=== PATIENT | male | born 1960 | race Caucasian/White ===

== ENCOUNTER 2016-11-05 11:28 | Day surgery (SDC) | payer OTHER, BC ==
--- NOTE | 2016-10-03 11:06 | DIAGNOSTIC IMAGING REPORT ---
CHEST 2 VIEWS ROUTINE CLINICAL HISTORY: Preoperative chest COMPARISON STUDY: 03/06/2016 FINDINGS: The cardiac and mediastinal contours are normal. There is no evidence of focal pulmonary consolidation. There is no evidence of failure. No pleural effusions are visualized.[ IMPRESSION: No active disease in the chest. Electronically signed by: Brad Mckeon M.D. 10/03/2016 11:04 AM
[2016-10-03 11:23] LABS: BASO % 0.6 %; BASO ABS # 0.04 K/uL (0-0.2); COMPLETE YES; EOS % 3.1 %; HEMATOCRIT 44.9 % (42-52); IG% 0.1 %; LYMPH % 30.4 %; LYMPH ABS # 2.08 K/uL (1.2-3.4); MEAN CELL VOLUME 85.4 fL (80-100); MEAN CORPUSCULAR HEMOGLOBIN 29.5 pg (25-34); MEAN CORPUSCULAR HGB CONC 34.5 g/dl (32-36); MEAN PLATELET VOLUME 10.4 fL (7.4-10.4); MONO % 8.9 %; NEUT % 56.9 %; PLATELET COUNT 262 K/uL (130-400); RED BLOOD COUNT 5.26 M/uL (4.7-6.1); WHITE BLOOD COUNT 6.84 K/uL (4.8-10.8)
[2016-10-03 11:26] LABS: URINE APPEARANCE CLEAR (CLEAR); URINE BILIRUBIN NEG (NEG); URINE COLOR YELLOW; URINE NITRITE NEG (NEG); URINE PH 6.5 (4.5-7.5); URINE SPECIFIC GRAVITY 1.018 (1.000-1.030); UROBILINOGEN NEG (NEG)
[2016-10-03 11:32] LABS: MANUAL MICROSCOPIC REQUIRED? NO; REVIEW REQ? NO
[2016-10-03 11:55] LABS: BLOOD UREA NITROGEN 18 mg/dl (7-18); BUN/CREATININE RATIO 19.6 (10-20); CALCIUM 8.7 mg/dl (8.5-10.1); CARBON DIOXIDE 30 mmol/L (21-32); CHLORIDE 106 mmol/L (98-107); CREATININE 0.91 mg/dl (0.60-1.40); GLUCOSE 107 mg/dl (70-99); POTASSIUM 4.1 mmol/L (3.5-5.1); SODIUM 141 mmol/L (136-145)
[2016-10-23 14:28] VITALS: BMI 36.0
[~2016-11-05] VITALS: Ht 180.3 cm; Wt 118.2 kg
[~2016-11-05 11:28] MED LIST: CEFAZOLIN 2000 MG/60 ML D5W IV SCH; FLUT0.15; LACTATED RINGER'S 1000ML 1,000 ML IV SCH
[2016-11-05 12:33] VITALS: BP 119/81; PULSE 77; TEMP 36.8; O2SAT 97; Ht 180.3 cm; Wt 118.2 kg
[2016-11-05 12:43] LABS: PARTIAL THROMBOPLASTIN RATIO 1.1; PROTHROMBIN TIME (PATIENT) 10.7 SECONDS (9.0-12.0)
[2016-11-05] MEDS ORDERED: FENTANYL CITRATE INJ 50 MCG/1 ML 2 ML VIAL ONE ×2 (13:34)
[2016-11-05] MEDS ORDERED: PROPOFOL IV EMULSION 10 MG/ML 20 ML VIAL IV ONE (13:34)
[2016-11-05] MEDS ORDERED: MIDAZOLAM HCL 1 MG/ML 2ML VIAL ONE (13:35)
[2016-11-05] MEDS ORDERED: OXYC-57 PO (14:18)
--- NOTE | 2016-11-05 14:20 | Discharge Instructions ---
Discharge Instructions Admission Reason for Admission: Herniated Nucleus Pulposus Discharge Discharge Diagnosis / Problem: Lumbar Herniated Disc Discharge Goals Goal(s): Decrease discomfort, Improve function, Increase independence Activity Recommendations Activity Limitations: as noted below Lifting Limitations: no more than 5 pounds Exercise/Sports Limitations: until after follow-up appointment May Resume Sexual Activity: after follow-up appointment Shower/Bathe: may shower/bathe in 3 days . Instructions / Follow-Up Instructions / Follow-Up ACTIVITY RECOMMENDATIONS: SELF CARE INSTRUCTIONS AFTER A LAMINECTOMY 1. No prolonged sitting (less than 30 minutes for the first 3 weeks after surgery). 2. No bending, lifting more than 5 pounds, or twisting (roll like a log when turning in bed). 3. You may shower 3 days after surgery if no drainage from wound. Thoroughly dry wound. Do not soak in the tub. 4. Please walk as much as you can for exercise. Gradually increase the distance that you walk as your endurance increases. 5. You may drive in 7-10 days if you are comfortable and no longer requiring pain medications. SPECIAL CARE INSTRUCTIONS: VERY IMPORTANT TO READ AND REVIEW A. Your surgical incision has been closed with a cosmetic suture under the skin that will dissolve in about 6 weeks. In 14 days, you can use a pair of clean scissors and cut the suture that is left outside of the skin at the ends of your incision. B. Complications are uncommon, but please contact us if you have any signs or symptoms of: 1. wound infection (fever higher than 102.5 degrees F, redness, separation of wound, drainage, or increasing pain from the incision) 2. blood clots in legs (pain, swelling, redness and warmth in legs) 3. urinary tract infection (fever higher than 102.5 degrees, burning upon urination or increased frequency of urination) 4. nerve problems (inability to walk on your toes or heels, numbness, loss of bowel or bladder control) 5. any other symptoms that concern you. C. Please call the office at if you have any concerns or questions about your operation or recovery. MANAGING PAIN AFTER SPINAL SURGERY 1. Narcotic medication is intended for short-term use and will be provided for surgical pain. Surgical pain usually lasts for a period of 4-6 weeks. Narcotic medication includes Percocet, Vicodin, Darvocet, Tylenol #3 or Lortab. 2. Longer-term pain is more appropriately treated with non-narcotic medication such as Tylenol ES. 3. Muscle spasm is not appropriately treated with narcotics. Muscle relaxers such as Soma, Flexeril or Skelaxin can be used along with Tylenol ES. 4. Remember that we all live with some "aches and pains". This is not unusual or uncommon after an injury or as we get older. 5. We will provide appropriate medication within the normal guidelines of their prescribed use. We will also be very cautious and aware of potential abuse and extended duration of patients' medication needs. 6. Please allow 2-3 days to process refills. Prescriptions will not be mailed but must be picked up at the office. FOLLOW UP VISIT: Keep your scheduled follow-up appointment. Any questions, please call the office at . Current Hospital Diet Patient's current hospital diet: Discharge Diet Recommended Diet: Regular Diet Pending Studies Studies pending at discharge: no Medical Emergencies . Who to Call and When: Medical Emergencies: If at any time you feel your situation is an emergency, please call 911 immediately. . Non-Emergent Contact Non-Emergency issues call your: Surgeon Call Non-Emergent contact if: temperature is above 101, your pain is not controlled, your pain is worsening, your pain is unusual for you, your pain is concerning you, wound has increased drainage, wound has increased redness, wound has increased pain, you have any medication questions . "Provider Documentation" section prepared by Manfred Yuen. VTE Core Measure Inpt VTE Proph given/why not?: Saurabh Jack
--- NOTE | 2016-11-05 14:30 | History and Physical ---
History & Physical Date Nov 05, 2016. Chief Complaint LBP and L leg pain History of Present Illness The patient is a 56 year old male with complaints of above who failed non op treatment with MRI demonstrating large L L2-3 HNP. Difficulty working due to symptoms. index injury 03/28, reaggravated 08/28. work related injury. works at [employer] ex. no right leg pain. no incontinence Past Medical/Surgical History Medical Problems: (1) Back strain 2 obesity 3 colonoscopy Additional History Hepatic Disease: No Endocrine Disorder: No Kidney Disease: No Hypertension: No Heart Disease: No Bleeding Tendencies: No Infectious Diseases: No Allergies Coded Allergies: No Known Allergies (Unverified , 11/05/16) Home Medications Scheduled PRN Fluticasone Propionate (Nasal) (Flonase Allergy Relief), 1 SPRAY NA DAILY PRN for PRN Oxycodone/Acetaminophen 5MG/325MG (Percocet 5MG/325MG), 1-2 TABLETS PO Q4H PRN for Pain Physical Examination Skin: warm/dry Eyes: normal inspection ENT: normal ENT inspection Head: normocephalic, atraumatic Neck: supple, trachea midline Respiratory/Chest: lungs clear, no respiratory distress Cardiovascular: regular rate, rhythm Back: normal inspection Extremities: normal inspection, normal range of motion Neurologic/Psych: no motor/sensory deficits, alert, normal reflexes, oriented x 3 Diagnosis L L2-3 HNP Plan of Treatment Left L2-3 miocrodiscecomty
[2016-11-05] MEDS ORDERED: ONDANSETRON INJ 2 MG/ML 2 ML VIAL IV PRN ×2 (14:45→15:45)
[2016-11-05] MEDS ORDERED: ATROPINE SULFATE 0.1 MG/ML 5ML SYR IV PRN (14:45)
[2016-11-05] MEDS ORDERED: EpHEDrine SULFATE INJ 50 MG/ML AMP IV PRN (14:45)
[2016-11-05] MEDS ORDERED: FENTANYL CITRATE INJ 50 MCG/1 ML 2 ML VIAL IV PRN (14:45)
[2016-11-05] MEDS ORDERED: GLYCOPYRROLATE INJ 0.2 MG/ML VIAL ONE (15:06)
[2016-11-05] MEDS ORDERED: ONDANSETRON INJ 2 MG/ML 2 ML VIAL ONE (15:06)
[2016-11-05] MEDS ORDERED: DEXAMETHASONE SOD INJ 4 MG/ML VIAL ONE (15:06)
[2016-11-05] MEDS ORDERED: NEOSTIGMINE METHYLSULFATE 1 MG/ML 10ML VIAL ONE (15:06)
[2016-11-05] MEDS ORDERED: LIDOCAINE HCL 2% 2 ML VIAL (20MG/ML) ONE (15:06)
[2016-11-05] MEDS ORDERED: ROCURONIUM BROMIDE 10 MG/ML 5 ML VIAL ONE (15:06)
[2016-11-05] MEDS ORDERED: BUPIVACAINE/EPINEPHRINE 0.5% MPF 1:200,000 30 ML VIAL INJ ONE (15:16)
[2016-11-05] MEDS ORDERED: THROMBIN 5000 UNITS KIT TOP ONE (15:19)
[2016-11-05] MEDS ORDERED: SODIUM CHLORIDE 0.9% 1000ML 1,000 ML IV SCH (15:35)
--- NOTE | 2016-11-05 15:35 | [facility] Post Operative Brief Note ---
Immediate Operative Summary Operative Date Nov 05, 2016. Pre-Operative Diagnosis Herniated Nucleus Pulposus Post-Operative Diagnosis Same as preop Procedure(s) Performed Left L2-L3 Microdiscectomy Surgeon Dr. Doherty Drier Helper Surgeon(s) Asa Yuen PA-C Estimated Blood Loss 20 ml Findings dict Specimens None per Surgeon
[2016-11-05] MEDS ORDERED: FLOSEAL HEMOSTATIC MATRIX 5ML TOP ONE (15:36)
[2016-11-05] MEDS ORDERED: BACITRACIN 50000 UNIT VIAL IR ONE (15:36)
--- NOTE | 2016-11-05 15:44 | DIAGNOSTIC IMAGING REPORT ---
INTRAOPERATIVE SPINE SINGLE VIEW CLINICAL HISTORY: LT L2-3 MICRODISCECTOMY COMPARISON STUDY: Conventional radiographic study dated March 14, 2016 FINDINGS: A single intraoperative fluoroscopic spot images provided for interpretation. 4 seconds of fluoroscopic time was utilized. There are posterior skin retractors present. There is a metallic probe projected over the L2-3 disc. IMPRESSION: Intraoperative localization as described above. Electronically signed by: Brad Mckeon M.D. 11/05/2016 3:42 PM Dictated Date/Time: 11/05/2016 3:41 PM
[2016-11-05] MEDS ORDERED: MoRPHine SULFATE 4 MG/ML 1 ML CARP\\VIAL IV PRN (15:45)
[2016-11-05] MEDS ORDERED: OXYCODONE/ACETAMINOPHEN 5-325 TAB PO PRN ×2 (15:45)
--- NOTE | 2016-11-05 15:50 | OPERATIVE REPORT ---
DATE OF OPERATION: 11/05/2016 PREOPERATIVE DIAGNOSES: Left L2-L3 herniated nucleus pulposus. POSTOPERATIVE DIAGNOSIS: Same. PROCEDURES: Left L2-L3 microdiscectomy. SURGEON: Dr. Doherty. MOTOR VEHICLE FIELD REPRESENTATIVE: Manfred Yuen PA-C. Please note he participated in all portions of the procedure and was critical for performance of procedure, participated in positioning, prepping, draping, retraction and wound closure. ANESTHESIA: General endotracheal anesthesia. COMPLICATIONS: None. ESTIMATED BLOOD LOSS: Minimal. DESCRIPTION OF PROCEDURE: After identification of patient and operative level, he was brought to the OR where he underwent induction of general anesthesia. He was then positioned prone on Rafael OR table. All bony prominences were well padded. Care was taken to avoid pressure on the periorbital area. Lumbosacral area was sterilely prepped and draped in usual fashion. Antibiotics were administered. Time-out was performed. Level was confirmed and skin incision was localized with lateral fluoroscopy and a spinal needle. Skin was infiltrated with Marcaine with epinephrine and skin incision was made of spinous process of L2 and L3, the left L2-L3 interlaminar window was exposed. A blacktop spreader retractor was placed and level was confirmed with fluoroscopy. I then did a laminotomy under the caudal edge of L2, removed medial 25% of the facet of L2-L3, identified the traversing nerve root, protected the nerve root with a nerve retractor. There was a broad-based disc protrusion with an annular tear noted. No free disc fragments were found consistent with absorption of some of the extruded fragment felt to be present on the MRI. I removed loose fragments behind the annulus through the preexisting annular tear. I made sure the nerve roots were free of compression and irrigated with bacitracin solution and reconfirmed level and applied FloSeal prior to layered closure. All sponge and needle counts were correct at the end of the case. I attest to the content of the Intraoperative Record and any orders documented therein. Any exceptio ns are noted below.
--- NOTE | 2016-11-05 16:26 | Anesthesiology Progress Note ---
Anesthesia Post Op Note Date & Time Nov 05, 2016 at 16:26 Vital Signs Pain Intensity: 5 Vital Signs Past 12 Hours Date Time Temp Pulse Resp B/P Pulse Ox O2 Delivery O2 Flow Rate FiO2 11/05/16 16:00 70 17 111/84 100 Mask 10 11/05/16 15:51 36.1 78 16 135/88 100 Mask 10 11/05/16 12:33 36.8 77 20 119/81 97 Room Air Notes Mental Status: alert / awake / arousable, participated in evaluation Pt Amnestic to Procedure: Yes Nausea / Vomiting: adequately controlled Pain: adequately controlled Airway Patency, RR, SpO2: stable & adequate BP & HR: stable & adequate Hydration State: stable & adequate Anesthetic Complications: no major complications apparent
[2016-11-05 17:40] VITALS: BP 140/89; PULSE 75; TEMP 36.7; O2SAT 95
== END 2016-11-05 17:44 | disposition home or self-care (01) ==
LOC: C.ACU 11:28
PROVIDERS: ATTEND Orthopaedic Surgery Orthopaedic Surgery of the Spine
DX: M51.16 Intervertebral disc disorders with radiculopathy, lumbar region (principal); E66.9 Obesity, unspecified

== ENCOUNTER 2017-10-28 11:03 | Observation (INO) | payer OTHER, BC ==
[~2017-10-28] VITALS: Ht 182.9 cm; Wt 122.9 kg
[~2017-10-28 11:03] MED LIST changes: -CEFAZOLIN 2000 MG/60 ML D5W IV SCH; -LACTATED RINGER'S 1000ML 1,000 ML IV SCH
[2017-10-28 12:02] LABS: PTT PATIENT 29.3 SECONDS (21.0-31.0)
[2017-10-28 12:06] LABS: BASO % 0.6 %; BASO ABS # 0.05 K/uL (0-0.2); EOS % 3.6 %; EOS ABS # 0.29 K/uL (0-0.5); HEMATOCRIT 45.5 % (42-52); HEMOGLOBIN 15.7 g/dL (14.0-18.0); IG# 0.02 K/uL (0.00-0.02); LYMPH % 28.2 %; LYMPH ABS # 2.25 K/uL (1.2-3.4); MEAN CELL VOLUME 84.9 fL (80-100); MEAN CORPUSCULAR HEMOGLOBIN 29.3 pg (25-34); MEAN CORPUSCULAR HGB CONC 34.5 g/dl (32-36); MEAN PLATELET VOLUME 10.1 fL (7.4-10.4); MONO % 9.6 %; MONO ABS # 0.77 K/uL (0.11-0.59); NEUT % 57.7 %; NEUT ABS # 4.61 K/uL (1.4-6.5); PLATELET COUNT 281 K/uL (130-400); RED CELL DISTRIBUTION WIDTH SD 46.5 fL (36.4-46.3); WHITE BLOOD COUNT 7.99 K/uL (4.8-10.8)
[2017-10-28 12:11] LABS: ALBUMIN 3.6 gm/dl (3.4-5.0); ALT/SGPT 33 U/L (12-78); AST/SGOT 20 U/L (15-37); BLOOD UREA NITROGEN 14 mg/dl (7-18); CARBON DIOXIDE 29 mmol/L (21-32); CREATININE 0.95 mg/dl (0.60-1.40); GLUCOSE 100 mg/dl (70-99); POTASSIUM 4.3 mmol/L (3.5-5.1); SODIUM 138 mmol/L (136-145)
[2017-10-28 12:20] LABS: ALKALINE PHOSPHATASE 68 U/L (45-117); TOTAL PROTEIN 7.2 gm/dl (6.4-8.2)
--- NOTE | 2017-10-28 12:22 | DIAGNOSTIC IMAGING REPORT ---
CT OF THE HEAD WITHOUT CONTRAST CLINICAL HISTORY: Syncope. Fall. COMPARISON STUDY: No previous studies for comparison. TECHNIQUE: Helical axial images of the head were obtained without IV contrast. Automated exposure control was utilized for the study. A dose lowering technique was utilized adhering to the principles of ALARA. FINDINGS: No acute intracranial hemorrhage, midline shift or mass effect is present. Brain volume is normal. Ventricular system is normal. Basilar cisterns are patent. There are no extra-axial collections. Iqbal-white differentiation is maintained. There are no findings to suggest acute dural sinus thrombosis or acute territorial infarct. No calvarial fracture is present. IMPRESSION: No acute intracranial findings. Electronically signed by: Jalen Kolb M.D. 10/28/2017 12:21 PM Dictated Date/Time: 10/28/2017 12:19 PM
--- NOTE | 2017-10-28 12:26 | DIAGNOSTIC IMAGING REPORT ---
CT OF THE CERVICAL SPINE WITHOUT CONTRAST CLINICAL HISTORY: Fall. COMPARISON STUDY: No previous studies for comparison. TECHNIQUE: Helical axial images of the cervical spine were obtained without IV contrast. Sagittal and coronal reconstructions were viewed. A dose lowering technique was utilized adhering to the principles of ALARA. FINDINGS: There is reversal of the normal cervical lordosis. No acute cervical spine fracture is identified. The craniocervical junction is intact. There is mild multilevel disc space narrowing with extensive anterior osteophytosis of the cervical spine. There is no prevertebral edema. IMPRESSION: 1. No acute cervical spine fracture or subluxation. 2. Mild multilevel disc space narrowing and extensive anterior osteophytosis of the cervical spine. Electronically signed by: Jalen Kolb M.D. 10/28/2017 12:24 PM Dictated Date/Time: 10/28/2017 12:21 PM
[2017-10-28] MEDS ORDERED: ACETAMINOPHEN 325 MG TAB PO PRN (14:00)
--- NOTE | 2017-10-28 15:03 | History and Physical ---
History & Physical Date & Time of Service: Oct 28, 2017 at 14:46 Chief Complaint: Syncope Primary Care Physician: No Doctor, Assigned History of Present Illness Source: patient This patient is a 57-year-old male with a history of seasonal allergies and IBS , who presents with multiple episodes of syncope today. He reports he pulled off the side of the road yesterday around 1800 to de-ice his windshield wipers when he slipped on ice backwards and hit his head. He saw stars at that time, but does not think he passed out. He laid on the side of the road for a few minutes and then was able to get up and drive himself home. He had a headache last night and took a couple of Advil. He slept through his alarm which is unusual for him this morning. As he was walking out the door to go to work he got very lightheaded but did not pass out. He then proceeded to have another episode of near syncope at work as he was walking into the building. He then was recommended by his job to go get checked out at the urgent care. As he was walking out to his car, he suddenly had loss of consciousness and dropped to the ground in the parking lot. He denies any preceding lightheadedness, chest pain, heart palpitations, nausea. His headache today is actually better than yesterday at 1 out of 10 and is located in the posterior occiput. The syncope today was unwitnessed, but he thinks it could not have been a loss of consciousness for more than a few minutes. There was no evidence of seizure activity. He will be admitted overnight for observation on telemetry for multiple episodes of near syncope and syncope. 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[employer]) Allergies Coded Allergies: No Known Allergies (Unverified , 10/28/17) Home Medications No Active Prescriptions or Reported Meds Review of Systems Constitutional: + fatigue, No fever Eyes: No problem reported ENT: No problem reported Respiratory: No problem reported Cardiovascular: No problem reported Abdomen: No problem reported Musculoskeletal: No problem reported Genitourinary - Male: No problem reported Neurologic: + problem reported (mild headache), No numbness/tingling Psychiatric: No problem reported Endocrine: No problem reported Hematologic / Lymphatic: No problem reported Integumentary: No problem reported Allergic / Immunologic: No problem reported Physical Exam Vital Signs Date Time Temp Pulse Resp B/P (MAP) Pulse Ox O2 Delivery O2 Flow Rate FiO2 10/28/17 13:48 73 18 114/62 97 Room Air 10/28/17 12:06 69 18 136/87 98 Room Air 10/28/17 12:06 71 20 120/74 98 Room Air 69 136/87 87 131/90 10/28/17 11:35 79 10/28/17 11:21 36.4 75 20 122/82 95 Room Air 10/28/17 11:21 Room Air General Appearance: WD/WN, no apparent distress, + obese Head: normocephalic, atraumatic (with positive tenderness to palpation in the posterior occiput, no hematoma or laceration identified) Eyes: normal inspection, PERRL, EOMI, sclerae normal ENT: hearing grossly normal, pharynx normal Neck: supple, no adenopathy, thyroid normal, no carotid bruits, trachea midline Respiratory/Chest: lungs clear, normal breath sounds, no respiratory distress, no accessory muscle use Cardiovascular: regular rate, rhythm, no edema, no gallop, no murmur, normal peripheral pulses Abdomen/GI: normal bowel sounds, non tender, soft, no organomegaly, no pulsatile mass Back: normal inspection Extremities/Musculoskelatal: no calf tenderness, normal capillary refill, no pedal edema, normal range of motion Neurologic/Psych: rn bone marrow transplant II-XII nml as tested, no motor/sensory deficits, alert, normal mood/affect, oriented x 3 Skin: normal color, warm/dry, no rash, + pertinent finding (a small superficial abrasion nonbleeding on the left patella, and a few small superficial scrapes of the left anterior tibia) Lymphatic: no adenopathy Diagnostics Laboratory Results Results Past 24 Hours Test 10/28/17 11:36 10/28/17 11:55 10/28/17 12:00 Range/Units White Blood Count 7.99 4.8-10.8 K/uL Red Blood Count 5.36 4.7-6.1 M/uL Hemoglobin 15.7 14.0-18.0 g/dL Hematocrit 45.5 42-52 % Mean Corpuscular Volume 84.9 80-100 fL Mean Corpuscular Hemoglobin 29.3 25-34 pg Mean Corpuscular Hemoglobin Concent 34.5 32-36 g/dl Platelet Count 281 130-400 K/uL Mean Platelet Volume 10.1 7.4-10.4 fL Neutrophils (%) (Auto) 57.7 % Lymphocytes (%) (Auto) 28.2 % Monocytes (%) (Auto) 9.6 % Eosinophils (%) (Auto) 3.6 % Basophils (%) (Auto) 0.6 % Neutrophils # (Auto) 4.61 1.4-6.5 K/uL Lymphocytes # (Auto) 2.25 1.2-3.4 K/uL Monocytes # (Auto) 0.77 0.11-0.59 K/uL Eosinophils # (Auto) 0.29 0-0.5 K/uL Basophils # (Auto) 0.05 0-0.2 K/uL RDW Standard Deviation 46.5 36.4-46.3 fL RDW Coefficient of Variation 15.0 11.5-14.5 % Immature Granulocyte % (Auto) 0.3 % Immature Granulocyte # (Auto) 0.02 0.00-0.02 K/uL Prothrombin Time 10.9 9.0-12.0 SECONDS Prothromb Time International Ratio 1.0 0.9-1.1 Activated Partial Thromboplast Time 29.3 21.0-31.0 SECONDS Partial Thromboplastin Ratio 1.1 Sodium Level 138 136-145 mmol/L Potassium Level 4.3 3.5-5.1 mmol/L Chloride Level 105 98-107 mmol/L Carbon Dioxide Level 29 21-32 mmol/L Anion Gap 4.0 3-11 mmol/L Blood Urea Nitrogen 14 7-18 mg/dl Creatinine 0.95 0.60-1.40 mg/dl Est Creatinine Clear Calc Drug Dose 118.0 ml/min Estimated GFR () 102.6 Estimated GFR (Non- 88.5 BUN/Creatinine Ratio 14.9 10-20 Random Glucose 100 70-99 mg/dl Calcium Level 9.0 8.5-10.1 mg/dl Magnesium Level 2.1 1.8-2.4 mg/dl Total Bilirubin 0.7 0.2-1 mg/dl Direct Bilirubin 0.2 0-0.2 mg/dl Aspartate Amino Transf (AST/SGOT) 20 15-37 U/L Alanine Aminotransferase (ALT/SGPT) 33 12-78 U/L Alkaline Phosphatase 68 45-117 U/L Troponin I < 0.015 0-0.045 ng/ml Total Protein 7.2 6.4-8.2 gm/dl Albumin 3.6 3.4-5.0 gm/dl Thyroid Stimulating Hormone (TSH) 2.290 0.300-4.500 uIu/ml Free Thyroxine 1.32 0.80-1.60 ng/dl Ethyl Alcohol mg/dL < 3.0 0-3 mg/dl Urine Color YELLOW Urine Appearance CLEAR CLEAR Urine pH 6.5 4.5-7.5 Urine Specific [place] 1.012 1.000-1.030 Urine Protein NEG NEG Urine Glucose (UA) NEG NEG Urine Ketones NEG NEG Urine Occult Blood TRACE NEG Urine Nitrite NEG NEG Urine Bilirubin NEG NEG Urine Urobilinogen NEG NEG Urine Leukocyte Esterase NEG NEG Urine WBC (Auto) 0 0-5 /hpf Urine RBC (Auto) 0-4 0-4 /hpf Urine Hyaline Casts (Auto) 0 0-5 /lpf Urine Epithelial Cells (Auto) 0-5 0-5 /lpf Urine Bacteria (Auto) NEG NEG Urine Opiates Screen NEG NEG Urine Methadone, Qualitative NEG NEG Urine Barbiturates NEG NEG Urine Phencyclidine (PCP) Level NEG NEG Ur Amphetamine/Methamphetamine NEG NEG MDMA (Ecstasy) Screen NEG NEG Urine Benzodiazepines Screen NEG NEG Urine Cocaine Metabolite NEG NEG Urine Marijuana (THC) NEG NEG Diagnostic Radiology CT of the head and CT of the neck without any acute changes EKG Normal sinus rhythm, rate 71, nonspecific T-wave inversions in the inferior leads Impression Assessment and Plan This patient is a 57-year-old male with a history of seasonal allergies and IBS , who presents with multiple episodes of syncope today. He reports he pulled off the side of the road yesterday around 1800 to de-ice his windshield wipers when he slipped on ice backwards and hit his head. He saw stars at that time, but does not think he passed out. He laid on the side of the road for a few minutes and then was able to get up and drive himself home. He had a headache last night and took a couple of Advil. He slept through his alarm which is unusual for him this morning. As he was walking out the door to go to work he got very lightheaded but did not pass out. He then proceeded to have another episode of near syncope at work as he was walking into the building. He then was recommended by his job to go get checked out at the urgent care. As he was walking out to his car, he suddenly had loss of consciousness and dropped to the ground in the parking lot. He denies any preceding lightheadedness, chest pain, heart palpitations, nausea. His headache today is actually better than yesterday at 1 out of 10 and is located in the posterior occiput. The syncope today was unwitnessed, but he thinks it could not have been a loss of consciousness for more than a few minutes. There was no evidence of seizure activity. He will be admitted overnight for observation on telemetry for multiple episodes of near syncope and syncope. Recurrent syncope/concussion/headache-syncope is most likely related to recent head injury. He has no history of any cardiac issues in the past. His ECG does have very slight abnormality of the T waves in the inferior leads. -Admit to telemetry for observation for cardiac dysrhythmia -Consult neurology for further evaluation and recommendations -Check 1 more troponin in 6 hours to rule out cardiac ischemia, follow ECG in the morning -Check echocardiogram for structural heart disease -Would recommend post concussive precautions such as complete mental and physical rest, no driving until cleared by primary care doctor after discharge -Tylenol as needed for headache -Neuro checks daily IBS-stable -Supportive care as needed Seasonal allergies-stable, no current issues -Takes Zyrtec and Flonase as needed usually in the spring time Prophylaxis-SCDs Disposition-likely to home, will get PT/OT evaluations Full code Level of Care Telemetry Resuscitation Status FULL RESUSCITATION VTE Prophylaxis VTE Risk Assessment Done? Y/N: Yes Risk Level: Low Given or contraindicated: SCD's
--- NOTE | 2017-10-28 15:21 | EMERGENCY ROOM VISIT NOTE ---
History Report prepared by Ce: Clarke Zepeda Under the Supervision of: Dr. Benito Josue M.D. First contact with patient: 11:14 Stated Complaint: SYNCOPE History of Present Illness The patient is a 57 year old male who presents to the Emergency Room brought in by EMS with complaints of episodic syncope since 6 PM YESTERDAY. He reports that he pulled off exit [address] last night to adjust his windshield wipers when he slipped on ice and landed on his head. He notes that he probably had LOC. He states that he got back into his vehicle and drove back to his place of work. He states his neck and head are in pain. He describes the pain as dull and achy. He currently rates his pain a 3/10 in severity[address] On his way to work this morning, the patient states that he walked outside and grabbed the railing of stairs and suddenly fainted. He is unsure if he hit his head again and of how long he was passed out. He denies being incontinent of urine or tongue bites. He notes that he was dazed. He states that he drove to work and when he was walking into work, he collapsed onto his knees, though he did not have LOC. He asked for someone to take him to the hospital, but was denied. He states that he was on his way to his vehicle to drive himself to the hospital when he passed out and hit is head again. Overall, the patient has had three syncopal episodes in the last 17 hours and one near-syncopal episode. He states that he has no warning of syncopal episodes. He denies feeling lightheaded prior to the episodes. He denies any chest pain, shortness of breath, palpitations, or bloody stools. He denies any history of DM or HTN. He reports that he has GI issues, hearing issues, and sinus issues. He states that he regularly sees a doctor with [facility]. 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 He denies being incontinent of urine or tongue bites. He denies any lightheadedness, bloody stools, or palpitations. Review of Systems See HPI for pertinent positives & negatives. A total of 10 systems reviewed and were otherwise negative. Past Medical & Surgical Medical Problems: (1) Back strain (2) GI problem (3) Hearing decreased (4) Sinus problem (5) Syncope Family History Diabetes mellitus Hypertension Social History Smokeless Tobacco Use: Yes (small amount) Alcohol Use: occasionally Drug Use: none Marital Status: single Housing Status: lives alone Occupation Status: employed Current/Historical Medications No Active Prescriptions or Reported Meds Allergies Coded Allergies: No Known Allergies (Unverified , 10/28/17) Physical Exam Vital Signs Date Time Temp Pulse Resp B/P (MAP) Pulse Ox O2 Delivery O2 Flow Rate FiO2 10/28/17 14:56 78 20 120/72 98 10/28/17 13:48 73 18 114/62 97 Room Air 10/28/17 12:06 69 18 136/87 98 Room Air 10/28/17 12:06 71 20 120/74 98 Room Air 69 136/87 87 131/90 10/28/17 11:35 79 10/28/17 11:21 36.4 75 20 122/82 95 Room Air 10/28/17 11:21 Room Air Physical Exam Constitutional: Vital signs reviewed. Eyes: Pupils are equal round reactive to light. Conjunctiva are noninjected. ENT: Pharynx is clear without erythema or exudate. Mucous membranes are moist. Neck supple without meningeal signs. Mild midline tenderness throughout cervical spine without step off. Respiratory: Clear to auscultation bilaterally. Breath sounds are equal bilaterally. Cardiovascular: Regular rate and rhythm. No rubs or gallops. GI: Soft, nondistended and nontender. Bowel sounds are present. Musculoskeletal: No bony tenderness to lower extremities. Abrasion to left anterior knee. Integumentary: No cyanosis. Neurological: The patient is awake and alert. Cranial nerves II-XII are intact. Motor is 5 out of 5 all extremities. Sensation is intact to light touch all extremities. Normal speech. No pronator drift. Psychiatric: Normal affect. Medical Decision & Procedures ER Provider Diagnostic Interpretation: Radiology results as stated below per my review and the radiologist's interpretation: CT OF THE HEAD WITHOUT CONTRAST CLINICAL HISTORY: Syncope. Fall. COMPARISON STUDY: No previous studies for comparison. TECHNIQUE: Helical axial images of the head were obtained without IV contrast. Automated exposure control was utilized for the study. A dose lowering technique was utilized adhering to the principles of ALARA. FINDINGS: No acute intracranial hemorrhage, midline shift or mass effect is present. Brain volume is normal. Ventricular system is normal. Basilar cisterns are patent. There are no extra-axial collections. Iqbal-white differentiation is maintained. There are no findings to suggest acute dural sinus thrombosis or acute territorial infarct. No calvarial fracture is present. IMPRESSION: No acute intracranial findings. Electronically signed by: Jalen Kolb M.D. 10/28/2017 12:21 PM Dictated Date/Time: 10/28/2017 12:[address] OF THE CERVICAL SPINE WITHOUT CONTRAST CLINICAL HISTORY: Fall. COMPARISON STUDY: No previous studies for comparison. TECHNIQUE: Helical axial images of the cervical spine were obtained without IV contrast. Sagittal and coronal reconstructions were viewed. A dose lowering technique was utilized adhering to the principles of ALARA. FINDINGS: There is reversal of the normal cervical lordosis. No acute cervical spine fracture is identified. The craniocervical junction is intact. There is mild multilevel disc space narrowing with extensive anterior osteophytosis of the cervical spine. There is no prevertebral edema. IMPRESSION: 1. No acute cervical spine fracture or subluxation. 2. Mild multilevel disc space narrowing and extensive anterior osteophytosis of the cervical spine. Electronically signed by: Jalen Kolb M.D. 10/28/2017 12:24 PM Dictated Date/Time: 10/28/2017 12:21 PM Laboratory Results 10/28/17 11:36 Red Blood Count 5.36, Mean Corpuscular Volume 84.9, Mean Corpuscular Hemoglobin 29.3, Mean Corpuscular Hemoglobin Concent 34.5, Mean Platelet Volume 10.1, Neutrophils (%) (Auto) 57.7, Lymphocytes (%) (Auto) 28.2, Monocytes (%) (Auto) 9.6, Eosinophils (%) (Auto) 3.6, Basophils (%) (Auto) 0.6, Neutrophils # (Auto) 4.61, Lymphocytes # (Auto) 2.25, Monocytes # (Auto) 0.77, Eosinophils # (Auto) 0.29, Basophils # (Auto) 0.05 10/28/17 11:36 Test 10/28/17 11:36 10/28/17 11:55 10/28/17 12:00 White Blood Count 7.99 K/uL (4.8-10.8) Red Blood Count 5.36 M/uL (4.7-6.1) Hemoglobin 15.7 g/dL (14.0-18.0) Hematocrit 45.5 % (42-52) Mean Corpuscular Volume 84.9 fL (80-100) Mean Corpuscular Hemoglobin 29.3 pg (25-34) Mean Corpuscular Hemoglobin Concent 34.5 g/dl (32-36) Platelet Count 281 K/uL (130-400) Mean Platelet Volume 10.1 fL (7.4-10.4) Neutrophils (%) (Auto) 57.7 % Lymphocytes (%) (Auto) 28.2 % Monocytes (%) (Auto) 9.6 % Eosinophils (%) (Auto) 3.6 % Basophils (%) (Auto) 0.6 % Neutrophils # (Auto) 4.61 K/uL (1.4-6.5) Lymphocytes # (Auto) 2.25 K/uL (1.2-3.4) Monocytes # (Auto) 0.77 K/uL (0.11-0.59) Eosinophils # (Auto) 0.29 K/uL (0-0.5) Basophils # (Auto) 0.05 K/uL (0-0.2) RDW Standard Deviation 46.5 fL (36.4-46.3) RDW Coefficient of Variation 15.0 % (11.5-14.5) Immature Granulocyte % (Auto) 0.3 % Immature Granulocyte # (Auto) 0.02 K/uL (0.00-0.02) Prothrombin Time 10.9 SECONDS (9.0-12.0) Prothromb Time International Ratio 1.0 (0.9-1.1) Activated Partial Thromboplast Time 29.3 SECONDS (21.0-31.0) Partial Thromboplastin Ratio 1.1 Anion Gap 4.0 mmol/L (3-11) Est Creatinine Clear Calc Drug Dose 118.0 ml/min Estimated GFR () 102.6 Estimated GFR (Non- 88.5 BUN/Creatinine Ratio 14.9 (10-20) Calcium Level 9.0 mg/dl (8.5-10.1) Magnesium Level 2.1 mg/dl (1.8-2.4) Total Bilirubin 0.7 mg/dl (0.2-1) Direct Bilirubin 0.2 mg/dl (0-0.2) Aspartate Amino Transf (AST/SGOT) 20 U/L (15-37) Alanine Aminotransferase (ALT/SGPT) 33 U/L (12-78) Alkaline Phosphatase 68 U/L (45-117) Troponin I < 0.015 ng/ml (0-0.045) Total Protein 7.2 gm/dl (6.4-8.2) Albumin 3.6 gm/dl (3.4-5.0) Thyroid Stimulating Hormone (TSH) 2.290 uIu/ml (0.300-4.500) Free Thyroxine 1.32 ng/dl (0.80-1.60) Ethyl Alcohol mg/dL < 3.0 mg/dl (0-3) Urine Color YELLOW Urine Appearance CLEAR (CLEAR) Urine pH 6.5 (4.5-7.5) Urine Specific [place] 1.012 (1.000-1.030) Urine Protein NEG (NEG) Urine Glucose (UA) NEG (NEG) Urine Ketones NEG (NEG) Urine Occult Blood TRACE (NEG) Urine Nitrite NEG (NEG) Urine Bilirubin NEG (NEG) Urine Urobilinogen NEG (NEG) Urine Leukocyte Esterase NEG (NEG) Urine WBC (Auto) 0 /hpf (0-5) Urine RBC (Auto) 0-4 /hpf (0-4) Urine Hyaline Casts (Auto) 0 /lpf (0-5) Urine Epithelial Cells (Auto) 0-5 /lpf (0-5) Urine Bacteria (Auto) NEG (NEG) Urine Opiates Screen NEG (NEG) Urine Methadone, Qualitative NEG (NEG) Urine Barbiturates NEG (NEG) Urine Phencyclidine (PCP) Level NEG (NEG) Ur Amphetamine/Methamphetamine NEG (NEG) MDMA (Ecstasy) Screen NEG (NEG) Urine Benzodiazepines Screen NEG (NEG) Urine Cocaine Metabolite NEG (NEG) Urine Marijuana (THC) NEG (NEG) Laboratory results as reviewed by me. ECG Indication: syncope Rate (beats per minute): 71 Rhythm: normal sinus Findings: no acute ischemic change, no ectopy ED Course 1116: The patient was evaluated in room C6. A complete history and physical exam was performed. 1245: I reassessed the patient at this time. He is feeling better and resting comfortably. I discussed the results and treatment plan with the patient. I answered all pertaining questions that he had. He expressed understanding and verbalized agreement. The patient will be further evaluated. 1258: I spoke with gonzález Griffin. We discussed the patients case. The patient will be evaluated by the [facility] for further management. Medical Decision This is a 57-year-old male who presents with multiple syncopal episodes. Differential diagnosis includes intracranial hemorrhage, cervical fracture, skull fracture, concussion, seizure, dysrhythmia. I did perform a limited focused review of portions of the patient's old chart on the electronic medical record. The patient has had no recent pertinent visits to this hospital. I did evaluate the patient as noted above. The patient was placed in a cervical collar. Seizure precautions were observed. IV access was established. The patient was placed on a continuous satellite project site monitor. I did order and personally review the patient's 12-lead EKG as described above. I did order and review the patient's blood work as noted in the electronic medical record. Blood work is unremarkable. I did order a CT of the head and cervical spine. I did review the images myself as well as the radiology report as described above. There is no evidence of acute fracture or dislocation or intracranial hemorrhage. I did discuss the test results with the patient. At this time the cause of his frequent syncope is unclear. The patient is not orthostatic. He had no prodromal symptoms before passing out the second 2 times. His initial syncope was when after he hit his head. I did recommend admission to the hospital for further evaluation. I did discuss case with the hospital stay and top case assembler. Head Trauma GCS Score: 15 Medication Reconcilliation Current Medication List: was personally reviewed by me Blood Pressure Screening Patient's blood pressure: Normal blood pressure Consults Time Called: [phone] Consulting Physician: gonzález Griffin Returned Call: [phone] I spoke with gonzález Griffin. We discussed the patients case. The patient will be evaluated by the [facility] for further management. Impression Primary Impression: Syncopal episodes Additional Impressions: Head injury, acute Contusion of left knee Scribe Attestation The scribe's documentation has been prepared under my direct and personally reviewed by me in its entirety. I confirm that the note above accurately reflects all work, treatment, procedures, and medical decision making performed by me. Departure Information Dispostion Being Evaluated By Hospitalist Prescriptions No Active Prescriptions or Reported Meds Referrals No Doctor, Assigned (PCP) Problem Qualifiers Primary Impression: Syncopal episodes Syncope type: unspecified Qualified Codes: R55 - Syncope and collapse Additional Impressions: Head injury, acute Encounter type: initial encounter Qualified Codes: S09.90XA - Unspecified injury of head, initial encounter Contusion of left knee Encounter type: initial encounter Qualified Codes: S80.02XA - Contusion of left knee, initial encounter
[2017-10-28] MEDS ORDERED: IV FLUIDS COMPLETED PRN (16:30)
[2017-10-28 16:31] VITALS: O2SAT 97
[2017-10-28 16:32] VITALS: BP 133/77; PULSE 68; TEMP 36.7; O2SAT 97
[2017-10-28 16:48] VITALS: Ht 182.9 cm; Wt 122.9 kg
--- NOTE | 2017-10-28 16:51 | ECHOCARDIOGRAM REPORT ---
*NOTICE TO RECEIVING CONSTITUTION PARTY AGENCY This information is strictly Confidential and protected under [place] law. [place] law prohibits you from making any further disclosure of this information unless further disclosure is expressly permitted by the written consent of the person to whom it pertains or is authorized by law. A general authorization for the release of medical or other information is not sufficient for this purpose. Hospital accepts no responsibility if the information is made available to any other person, INCLUDING THE PATIENT. Interpretation Summary * Name: JULIAN MORALES Study Date: 10/28/2017 02:37 PM BP: 114/62 mmHg * Patient [facility] HR: 72 * : 1960 (M/d/yyyy) Gender: Male Height: 72 in * Age: 57 yrs Ethnicity: CA Weight: 279 lb * Ordering Physician: Daphney Johnson * Performed By: Amarilis Natarajan RDCS * * BSA: 2.5 m2 * Reason For Study: SYNCOPE * -- Conclusions -- * Left ventricular systolic function is low normal. * Grade I diastolic dysfunction, (abnormal relaxation pattern). * No significant valvular heart disease Procedure Details * A complete two-dimensional transthoracic echocardiogram was performed (2D, M-mode, Doppler and color flow Doppler). * The study was technically difficult. * The study was technically difficult, but visualization was adequate with the administration of Definity ultrasound contrast. * There were technical limitations due to patient'sbody habitus * A contrast injection of Definity was performed to improve assessment of LV function. * Contrast was injected into an intravenous site in the left arm. * One vial of Definity ultrasound contrast was diluted in normal saline to a total volume of 10 ml. A total of '2' ml of solution was administered during imaging. * Lot # [id number] of Definity utilized for procedure. * Expiration date . * The attending nurse who injected the contrast agent was AMNA Arango. Left Ventricle * The left ventricle is normal in size. * There is normal left ventricular wall thickness. * Ejection Fraction = 50-55%. * Left ventricular systolic function is low normal. * Grade I diastolic dysfunction, (abnormal relaxation pattern). * The left ventricular wall motion is normal. Right Ventricle * The right ventricle is normal in size and function. * The right ventricular systolic function is normal as assessed by tricuspid annular plane systolic excursion (TAPSE) (normal >1.5 cm). Atria * The left atrial size is normal. * Right atrial size is normal. Mitral Valve * The mitral valve is grossly normal. * Significant mitral regurgitation is absent. Tricuspid Valve * The tricuspid valve is not well visualized, but is grossly normal. * Significant tricuspid regurgitation is absent. Aortic Valve * The aortic valve is not well visualized. * Probably trileaflet * No hemodynamically significant valvular aortic stenosis. * There is no significant aortic regurgitation. Great Vessels * The aortic root is normal size. Pericardium/Pleural * There is no pericardial effusion. MMode 2D Measurements and Calculations IVSd 0.92 cm IVSs 1.5 cm LVIDd 5.0 cm LVIDs 3.4 cm LVPWd 0.76 cm LVPWs 1.3 cm IVS/LVPW 1.2 FS 32.1 % EDV(Teich) 120.5 ml ESV(Teich) 48.1 ml EF(Teich) 60.1 % EDV(cubed) 128.1 ml ESV(cubed) 40.0 ml EF(cubed) 68.8 % % IVS thick 60.7 % % LVPW thick 74.9 % LV mass(C)d 146.7 grams LV mass(C)dI 59.8 grams/m\S\2 LV mass(C)s 168.4 grams LV mass(C)sI 68.6 grams/m\S\2 SV(Teich) 72.4 ml SI(Teich) 29.5 ml/m\S\2 SV(cubed) 88.1 ml SI(cubed) 35.9 ml/m\S\2 Ao root diam 3.2 cm Ao root area 7.8 cm\S\2 ACS 2.1 cm LA dimension 3.5 cm LA/Ao 1.1 LVAd ap4 37.1 cm\S\2 LVLd ap4 8.4 cm EDV(MOD-sp4) 138.3 ml EDV(sp4-el) 139.7 ml LVAs ap4 21.0 cm\S\2 LVLs ap4 6.9 cm ESV(MOD-sp4) 53.8 ml ESV(sp4-el) 54.2 ml EF(MOD-sp4) 61.1 % EF(sp4-el) 61.2 % LVAd ap2 28.5 cm\S\2 LVLd ap2 7.9 cm EDV(MOD-sp2) 86.5 ml EDV(sp2-el) 87.3 ml LVAs ap2 16.1 cm\S\2 LVLs ap2 6.9 cm ESV(MOD-sp2) 33.0 ml ESV(sp2-el) 32.0 ml EF(MOD-sp2) 61.9 % EF(sp2-el) 63.3 % LVLd %diff -6.22 % EDV(MOD-bp) 110.1 ml LVLs %diff -0.08 % ESV(MOD-bp) 41.9 ml EF(MOD-bp) 62.0 % SV(MOD-sp4) 84.5 ml SI(MOD-sp4) 34.4 ml/m\S\2 SV(MOD-sp2) 53.5 ml SI(MOD-sp2) 21.8 ml/m\S\2 SV(MOD-bp) 68.3 ml SI(MOD-bp) 27.8 ml/m\S\2 SV(sp4-el) 85.5 ml SI(sp4-el) 34.8 ml/m\S\2 SV(sp2-el) 55.3 ml SI(sp2-el) 22.5 ml/m\S\2 Doppler Measurements and Calculations MV E max nancie 48.5 cm/sec MV A max nancie 70.7 cm/sec MV E/A 0.69 MV dec time 0.38 sec Ao V2 max 102.7 cm/sec Ao max PG 4.2 mmHg Ao max PG (full) 0.96 mmHg LV V1 max PG 3.3 mmHg LV V1 max 90.2 cm/sec PA V2 max 99.7 cm/sec PA max PG 4.0 mmHg
[2017-10-28 16:59] VITALS: O2SAT 97
[2017-10-28 19:45] VITALS: BP 94/53; PULSE 82; TEMP 36.5; O2SAT 95
[2017-10-28 20:00] VITALS: O2SAT 95
[2017-10-28 23:38] VITALS: BP 110/72; PULSE 78; TEMP 36.6; O2SAT 94
[2017-10-29] VITALS (8 sets, daily range): BP systolic 99–126; BP diastolic 63–80; PULSE 72–81; TEMP 36.3–36.6; O2SAT 94–100
--- NOTE | 2017-10-29 09:27 | Neurology Consultation ---
Neurology Consultation Date of Consultation: Oct 29, 2017. Attending Physician: Daphney Johnson MD Primary Care Physician: No Doctor, Assigned Reason for Consultation: Patient is a 57-year-old, was asked to see at the request of Dr. Johnson for neurologic consultation regarding closed head trauma and syncope. History of Present Illness Source: patient, caregiver, hospital records This patient has no history of migraines or headaches and has no cardiac history or history of syncope, lightheadedness, or vertigo. He has no history of seizure disorder. In the evening of October 27, around 1800 hours, he got out of his [employer] truck pulling off on the side of the road to clear ice off the windshield. His foot hit a patch of ice both feet slipped up in the air, and he landed backwards on his back, posterior cervical spine, and occiput. He immediately saw stars and had considerable head pain and neck pain. He felt completely dazed, and stunned but he does not believe he lost consciousness. If he did, it would only a been for a second or so. He had some blurry and double vision and felt woozy and foggy. After few minutes she went back in his truck and drove back to the terminal. He got home around 2130 hours, took some Advil, went to bed. At the time he was having occipital headache, neck pain, blurry and double vision lightheadedness and foggy feeling. He had up the next morning showered and ate some breakfast. He felt foggy and lightheaded and still had a headache and neck pain. He went outside to go to work around 0715 hours and felt lightheaded. This was a vertiginous lightheadedness and he swayed but held onto the railing and did not fall down. This lasted a few seconds that he got into his car and went to work. Around 0730 hours he was getting out of his car took a few steps and felt the same but lightheadedness sensation. He grabbed onto the fence to prevent from falling but did dip down for a few seconds and then got back up. He remembers both of these incidences and has no amnesia of the event. Each incident lasted only a few seconds. He went to see a PA across the road from his terminal was told to go to the emergency room and was walking out when he had the lightheaded woozy feeling and he landed on his left knee and then onto the ground. This was around 0800 hours. He was taken to the emergency room, arriving at 1121 hours on October 28. Blood pressure was 120/82, pulse is 75 and regular, respiratory rate 20, temperature 36.4, and O2 saturation 95 percent. His neurologic exam was described as unremarkable but his posterior cervical spine was somewhat tender to palpate. CT scan of the head was unremarkable with no acute changes or hemorrhage. CT scan of the cervical spine showed no acute changes but shows some diffuse nonspecific degenerative changes. I reviewed both of these films. CBC, Chem profile, TSH, tox screen and urinalysis were all unremarkable. Echocardiogram was unremarkable. Overnight monitoring showed no cardiac dysrhythmia he has normal sinus rhythm. The patient has been doing well and he has walked without further events but he does have some very mild lightheadedness/wooziness and fogginess to his thinking. He has no further blurry or double vision and denies any weakness or numbness of the limbs. His low back has some pain from the fall this is mild. Past Medical/Surgical History Medical Problems: (1) Contusion of left knee Status: Acute (2) Head injury, acute Status: Acute (3) Lumbar disc herniation Status: Acute (4) Syncopal episodes Status: Acute History of GI issues with diarrhea and other problems stemming back from his service. He was in the [place] [employer]. Chronic hearing loss with hearing aids Chronic sinusitis Bilateral chronic tinnitus Closed head trauma with concussion Headache secondary to concussion Neck pain secondary to trauma Post L2-[address] Doherty November 05, 2016. He has some chronic mild low back pain issues but has been much improved since the surgery Family History Father age 83 from complications of Agent [place]. He was a [place] . He had stroke, heart issues, hypertension Mother, age 80 is doing fairly well although she has some hypertension Social History Patient used to smoke cigarettes but quit 15 years ago. He now out chews about 1 can of Skoal per week He rarely has a drink of alcohol. 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 and the [employer]. Smoking Status: Former smoker Smokeless Tobacco Use: Yes (small amount) Alcohol Use: occasionally Drug Use: none Marital Status: Housing Status: lives with roommate Occupation Status: employed Allergies Coded Allergies: No Known Allergies (Unverified , 10/28/17) Current Inpatient Medications Current Inpatient Medications Medications (Trade) Dose Ordered Sig/Reid Route Start Time Stop Time Status Last Admin Dose Admin Acetaminophen (Tylenol Tab) 650 mg Q4H PRN PO 10/28/17 14:00 11/27/17 13:59 10/28/17 20:57 650 MG Miscellaneous (Iv Fluids Completed) 1 ea PRN PRN N/A 10/28/17 16:30 10/28/18 16:29 Review of Systems Constitutional: No fever, No weakness, No fatigue Eyes: No worsening of vision, No diplopia ENT: + hearing loss, + tinnitus Respiratory: No cough, No shortness of breath Cardiovascular: No chest pain, No palpitations Abdomen: No pain, No nausea Musculoskeletal: + joint pain, No muscle pain Genitourinary - Male: No dysuria, No urinary incontinence Neurologic: No memory loss, No weakness, No numbness/tingling, No vertigo, No balance problems Psychiatric: No depression symptoms, No anxiety Endocrine: No fatigue Hematologic / Lymphatic: No abnormal bleeding/bruising Integumentary: No rash Allergic / Immunologic: No hives Physical Exam Vital Signs (Past 24 Hrs): Date Time Temp Pulse Resp B/P (MAP) Pulse Ox O2 Delivery O2 Flow Rate FiO2 10/29/17 07:26 36.6 76 16 99/63 (75) 96 Room Air 10/29/17 04:00 Room Air 10/29/17 03:35 36.6 75 18 103/66 (78) 97 Room Air 10/29/17 00:01 94 Room Air 10/28/17 23:38 36.6 78 18 110/72 (85) 94 Room Air 10/28/17 20:00 95 Room Air 10/28/17 19:45 36.5 82 20 94/53 (67) 95 Room Air 10/28/17 16:59 97 Room Air 10/28/17 16:32 36.7 68 18 133/77 (95) 97 Room Air 10/28/17 16:32 97 Room Air 10/28/17 16:31 97 Room Air 10/28/17 14:56 78 20 120/72 98 10/28/17 13:48 73 18 114/62 97 Room Air 10/28/17 12:06 69 18 136/87 98 Room Air 10/28/17 12:06 71 20 120/74 98 Room Air 69 136/87 87 131/90 10/28/17 11:35 79 10/28/17 11:21 36.4 75 20 122/82 95 Room Air 10/28/17 11:21 Room Air Patient is right-handed. The patient is awake and alert. Speech is normal without aphasia or dysarthria. Mentation and thought processes are intact with orientation and normal fund of knowledge. Mood and affect are normal and appropriate. Appearance and grooming are normal. Long and short-term memory are intact. The discs are sharp with positive venous pulsations. There are no exudates, hemorrhages, or blood vessel changes seen. Pupils are 4mm bilaterally and reactive to light. Extraocular eye muscles are intact without nystagmus. Visual acuity and visual webster seem normal grossly to confrontation. There are no deficits to sensation of the face bilaterally. Corneal reflexes are positive bilaterally. Facial strength and symmetry is normal bilaterally. Hearing seems intact grossly to voice and finger rub. Palate moves well without asymmetry. There is normal sternocleidomastoid and trapezius strength bilaterally. Tongue is midline with good strength bilaterally. Neck is with full range of motion without discomfort. There are no cervical bruits. There are no cranial or ocular bruits. He has some mild tenderness where he struck his occiput high up on the right. Scalp is otherwise intact Heart is without murmur. Posterior cervical paraspinal muscles are diffusely tender to palpation with no obvious spasm. Thoracic and lumbar spine are nontender to palpation. Gait is narrow based with good arm swing and turns. Stance is reasonable eyes open or closed although he complains of some wooziness. With outstretched arms there is no drift. There are no resting, postural, or action tremors. There is no ataxia with [id number] testing. There is good facility in the hands. There are no abnormal involuntary movements noted. Motor strength is 5/5 diffusely in the arms bilaterally including deltoids, biceps, brachioradialis, wrist flexors and extensors, media job titles, and intrinsic hand muscles. Motor strength is 5/5 diffusely in the legs bilaterally including hip flexors, quadriceps, hamstring, gastrocnemius, tibialis anterior, tibialis posterior, and peroneii muscles bilaterally. Toe extensors are normal and there is good bulk in the extensor digitorum brevis muscle bilaterally. The limbs have good tone without rigidity or spasticity, and there is no atrophy noted. Muscle bulk is normal, there is no tenderness, no myotonia noted to percussion, and no fasciculations seen. Sensory examination is intact to pin and touch throughout all four limbs. Reflexes are 2/4 in the biceps, triceps, brachioradialis, quadriceps, and Achilles tendons bilaterally. Toes are downgoing with plantar stimulation bilaterally. Peripheral pulses are present and of normal quality distally in all four limbs. There is no peripheral edema noted. Laboratory Results Past 24 Hours: 10/28/17 11:36 Red Blood Count 5.36, Mean Corpuscular Volume 84.9, Mean Corpuscular Hemoglobin 29.3, Mean Corpuscular Hemoglobin Concent 34.5, Mean Platelet Volume 10.1, Neutrophils (%) (Auto) 57.7, Lymphocytes (%) (Auto) 28.2, Monocytes (%) (Auto) 9.6, Eosinophils (%) (Auto) 3.6, Basophils (%) (Auto) 0.6, Neutrophils # (Auto) 4.61, Lymphocytes # (Auto) 2.25, Monocytes # (Auto) 0.77, Eosinophils # (Auto) 0.29, Basophils # (Auto) 0.05 10/28/17 11:36 Test 10/28/17 11:36 10/28/17 11:55 10/28/17 12:00 10/28/17 17:46 White Blood Count 7.99 K/uL (4.8-10.8) Red Blood Count 5.36 M/uL (4.7-6.1) Hemoglobin 15.7 g/dL (14.0-18.0) Hematocrit 45.5 % (42-52) Mean Corpuscular Volume 84.9 fL (80-100) Mean Corpuscular Hemoglobin 29.3 pg (25-34) Mean Corpuscular Hemoglobin Concent 34.5 g/dl (32-36) Platelet Count 281 K/uL (130-400) Mean Platelet Volume 10.1 fL (7.4-10.4) Neutrophils (%) (Auto) 57.7 % Lymphocytes (%) (Auto) 28.2 % Monocytes (%) (Auto) 9.6 % Eosinophils (%) (Auto) 3.6 % Basophils (%) (Auto) 0.6 % Neutrophils # (Auto) 4.61 K/uL (1.4-6.5) Lymphocytes # (Auto) 2.25 K/uL (1.2-3.4) Monocytes # (Auto) 0.77 K/uL (0.11-0.59) Eosinophils # (Auto) 0.29 K/uL (0-0.5) Basophils # (Auto) 0.05 K/uL (0-0.2) RDW Standard Deviation 46.5 fL (36.4-46.3) RDW Coefficient of Variation 15.0 % (11.5-14.5) Immature Granulocyte % (Auto) 0.3 % Immature Granulocyte # (Auto) 0.02 K/uL (0.00-0.02) Prothrombin Time 10.9 SECONDS (9.0-12.0) Prothromb Time International Ratio 1.0 (0.9-1.1) Activated Partial Thromboplast Time 29.3 SECONDS (21.0-31.0) Partial Thromboplastin Ratio 1.1 Anion Gap 4.0 mmol/L (3-11) Est Creatinine Clear Calc Drug Dose 118.0 ml/min Estimated GFR () 102.6 Estimated GFR (Non- 88.5 BUN/Creatinine Ratio 14.9 (10-20) Calcium Level 9.0 mg/dl (8.5-10.1) Magnesium Level 2.1 mg/dl (1.8-2.4) Total Bilirubin 0.7 mg/dl (0.2-1) Direct Bilirubin 0.2 mg/dl (0-0.2) Aspartate Amino Transf (AST/SGOT) 20 U/L (15-37) Alanine Aminotransferase (ALT/SGPT) 33 U/L (12-78) Alkaline Phosphatase 68 U/L (45-117) Total Protein 7.2 gm/dl (6.4-8.2) Albumin 3.6 gm/dl (3.4-5.0) Thyroid Stimulating Hormone (TSH) 2.290 uIu/ml (0.300-4.500) Free Thyroxine 1.32 ng/dl (0.80-1.60) Ethyl Alcohol mg/dL < 3.0 mg/dl (0-3) Urine Color YELLOW Urine Appearance CLEAR (CLEAR) Urine pH 6.5 (4.5-7.5) Urine Specific [place] 1.012 (1.000-1.030) Urine Protein NEG (NEG) Urine Glucose (UA) NEG (NEG) Urine Ketones NEG (NEG) Urine Occult Blood TRACE (NEG) Urine Nitrite NEG (NEG) Urine Bilirubin NEG (NEG) Urine Urobilinogen NEG (NEG) Urine Leukocyte Esterase NEG (NEG) Urine WBC (Auto) 0 /hpf (0-5) Urine RBC (Auto) 0-4 /hpf (0-4) Urine Hyaline Casts (Auto) 0 /lpf (0-5) Urine Epithelial Cells (Auto) 0-5 /lpf (0-5) Urine Bacteria (Auto) NEG (NEG) Urine Opiates Screen NEG (NEG) Urine Methadone, Qualitative NEG (NEG) Urine Barbiturates NEG (NEG) Urine Phencyclidine (PCP) Level NEG (NEG) Ur Amphetamine/Methamphetamine NEG (NEG) MDMA (Ecstasy) Screen NEG (NEG) Urine Benzodiazepines Screen NEG (NEG) Urine Cocaine Metabolite NEG (NEG) Urine Marijuana (THC) NEG (NEG) Troponin I < 0.015 ng/ml (0-0.045) Imaging CT OF THE HEAD WITHOUT CONTRAST CLINICAL HISTORY: Syncope. Fall. COMPARISON STUDY: No previous studies for comparison. TECHNIQUE: Helical axial images of the head were obtained without IV contrast. Automated exposure control was utilized for the study. A dose lowering technique was utilized adhering to the principles of ALARA. FINDINGS: No acute intracranial hemorrhage, midline shift or mass effect is present. Brain volume is normal. Ventricular system is normal. Basilar cisterns are patent. There are no extra-axial collections. Iqbal-white differentiation is maintained. There are no findings to suggest acute dural sinus thrombosis or acute territorial infarct. No calvarial fracture is present. IMPRESSION: No acute intracranial findings. Electronically signed by: Jalen Kolb M.D. 10/28/2017 12:21 PM Impression 1. Significant closed head trauma from slip on the ice and fall evening of October 27 He has suffered a significant concussion with headache, wooziness, lightheadedness/mild vertiginous symptoms, and vision changes including blurry and double vision. Most of his symptomatology is cleared although he still has some neck soreness and headache in a scale of 1-2/10. Neurologic examination is unremarkable with no focal neurologic findings, meningeal signs, or encephalopathy. 2. I do not believe this patient actually has syncope. He is describing some nonspecific lightheadedness and wooziness resulting in a loss of balance and perhaps near syncopal phenomenon. There is no evidence to suggest cardiac dysrhythmia or other cardiovascular issues to cause syncope. There is no evidence to suggest seizure disorder. 3. Chronic bilateral hearing loss and tinnitus from noise exposure stemming from his service This is stable 4. Mild chronic low back pain post L2-3 diskectomy October 2016 This is stable Plan 1. MRI of the brain with outwithout contrast to evaluate for cerebral contusion 2. There is no need for any additional neurologic testing at this time. 3. Treat his pay conservatively with [id number] medications such as acetaminophen or naproxen sodium. 4. Follow-up with me as an outpatient November 03. 5. No work for now until cleared for work. I will reassess on November 03. I discussed this case with Dr. Byrd including differential diagnosis and treatment options. All told I spent a total of 120 minutes with this patient reviewing records, and direct patient care in the room as well as discussion with Dr. Byrd and the patient's nursing staff..
--- NOTE | 2017-10-29 10:40 | Medical Student: [facility] ---
Med Student History & Physical Date & Time of Service: Oct 29, 2017 at 08:51 Chief Complaint: Lightheadedness, h/o head trauma Primary Care Physician: No Doctor, Assigned History of Present Illness Source: patient, clinic records, hospital records Pt is a 57 yo right handed M with complaints of multiple episodes of lightheadedness post head trauma. At approximately 6PM on Friday, the pt got out of his car to to clean off his windshield and slipped on the ice. He hit his back, neck and the back of his head hard on the ice. Initially he noted he had severe pain in his neck and back of his head (-05/22), "saw stars", nausea, blurred vision, and felt like he was in a "fog". He denied any LOC, chest pain, SOB, palpitations or any amnesia related to the event. 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 He took an Advil and went to bed while still complaining about blurred vision, pain, and feeling in a fog. The next morning he felt "fine ", but did note continued "fog" and head/neck pain. His first episode of severe lightheadedness post trauma was around 7:15-7:20AM, while he was walking outside. He felt "woozy" and did feel as though the environment was moving, but was able to catch himself and did not fall. The episode lasted a couple of seconds. The second episode occurred after he drove to work and while he was walking to his building around 7:30-7:35AM, which also lasted a few seconds. He walked across the street to the [place] and was told he should be seen to get brain imaging. As he was walking outside, he had a third episode of lightheadedness around 8:00AM, where he was unable to catch himself and fell on his knees and then his side. EMS was called and he was brought to the [facility] ED. CT scan of head was negative for acute cranial bleed. No fracture of the cervical spine was noted on CT of neck. He currently notes very mild pain in the back of his head and neck (-11/22) and notes diplopia and fogginess have resolved. 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 Has hearing aids. 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) Allergies Coded Allergies: No Known Allergies (Unverified , 10/28/17) Medications No Active Prescriptions or Reported Meds Review of Systems See HPI Physical Exam Vital Signs (24 Hours) Date Time Temp Pulse Resp B/P (MAP) Pulse Ox O2 Delivery O2 Flow Rate FiO2 10/29/17 07:26 36.6 76 16 99/63 (75) 96 Room Air 10/29/17 04:00 Room Air 10/29/17 03:35 36.6 75 18 103/66 (78) 97 Room Air 10/29/17 00:01 94 Room Air 10/28/17 23:38 36.6 78 18 110/72 (85) 94 Room Air 10/28/17 20:00 95 Room Air 10/28/17 19:45 36.5 82 20 94/53 (67) 95 Room Air 10/28/17 16:59 97 Room Air 10/28/17 16:32 36.7 68 18 133/77 (95) 97 Room Air 10/28/17 16:32 97 Room Air 10/28/17 16:31 97 Room Air 10/28/17 14:56 78 20 120/72 98 10/28/17 13:48 73 18 114/62 97 Room Air 10/28/17 12:06 69 18 136/87 98 Room Air 10/28/17 12:06 71 20 120/74 98 Room Air 69 136/87 87 131/90 10/28/17 11:35 79 10/28/17 11:21 36.4 75 20 122/82 95 Room Air 10/28/17 11:21 Room Air General Appearance: WD/WN, no apparent distress Head: normocephalic, atraumatic Cardiovascular: regular rate, rhythm, no edema, no gallop Neuro: Mental Status: Pt is alert and oriented. Normal mood and affect. Speech is clear and fluent with good comprehension, repetition and naming. Appropriate level of knowledge. Memory intact. CN: CN1: not tested CN2: PERRLA CN3,4,6: EOM intact, no nystagmus CN5: Symmetric sensation to light touch, temperature in the V1-3 distribution. CN7: Symmetric smile, eye closure, forehead wrinkle and puffing cheeks bilaterally CN8: chronic hearing loss bilaterally L=R CN9,10: uvula midline, palate elevates symmetrically CN11: shoulder shrug symmetric CN12: tongue protrudes midline Sensory: Equal sensation to touch and vibration bilaterally in the distal upper extremities and lower extremities. Motor: There is no pronator drift of out-stretched arms. Muscle bulk and tone are normal. Strength full bilaterally [5/5] in upper extremities (deltoids, biceps, triceps, wrist extension) and lower extremities (hip flexion/extension, knee flexion/extension, ankle flexion/extension). Coordination: No dysmetria on finger to nose test and heel to soria. Reflexes: Reflexes 2+ in triceps, biceps, brachioradialis tendons bilaterally Reflexes 1+ in quadriceps, Achilles tendons bilaterally Babinski reflex is down-going. Gait: Mild light headedness with standing and walking but tolerable. Normal gait and turning. Skin: Pain to palpation on the right side of the anterior occiput and pain to palpation on the back of the neck in the midline. Minor abrasion noted on left knee. Surgical scar from microdiscectomy on back. Diagnostics Laboratory Results Results Past 24 Hours Test 10/28/17 11:36 10/28/17 11:55 10/28/17 12:00 10/28/17 17:46 Range/Units White Blood Count 7.99 4.8-10.8 K/uL Red Blood Count 5.36 4.7-6.1 M/uL Hemoglobin 15.7 14.0-18.0 g/dL Hematocrit 45.5 42-52 % Mean Corpuscular Volume 84.9 80-100 fL Mean Corpuscular Hemoglobin 29.3 25-34 pg Mean Corpuscular Hemoglobin Concent 34.5 32-36 g/dl Platelet Count 281 130-400 K/uL Mean Platelet Volume 10.1 7.4-10.4 fL Neutrophils (%) (Auto) 57.7 % Lymphocytes (%) (Auto) 28.2 % Monocytes (%) (Auto) 9.6 % Eosinophils (%) (Auto) 3.6 % Basophils (%) (Auto) 0.6 % Neutrophils # (Auto) 4.61 1.4-6.5 K/uL Lymphocytes # (Auto) 2.25 1.2-3.4 K/uL Monocytes # (Auto) 0.77 0.11-0.59 K/uL Eosinophils # (Auto) 0.29 0-0.5 K/uL Basophils # (Auto) 0.05 0-0.2 K/uL RDW Standard Deviation 46.5 36.4-46.3 fL RDW Coefficient of Variation 15.0 11.5-14.5 % Immature Granulocyte % (Auto) 0.3 % Immature Granulocyte # (Auto) 0.02 0.00-0.02 K/uL Prothrombin Time 10.9 9.0-12.0 SECONDS Prothromb Time International Ratio 1.0 0.9-1.1 Activated Partial Thromboplast Time 29.3 21.0-31.0 SECONDS Partial Thromboplastin Ratio 1.1 Sodium Level 138 136-145 mmol/L Potassium Level 4.3 3.5-5.1 mmol/L Chloride Level 105 98-107 mmol/L Carbon Dioxide Level 29 21-32 mmol/L Anion Gap 4.0 3-11 mmol/L Blood Urea Nitrogen 14 7-18 mg/dl Creatinine 0.95 0.60-1.40 mg/dl Est Creatinine Clear Calc Drug Dose 118.0 ml/min Estimated GFR () 102.6 Estimated GFR (Non- 88.5 BUN/Creatinine Ratio 14.9 10-20 Random Glucose 100 70-99 mg/dl Calcium Level 9.0 8.5-10.1 mg/dl Magnesium Level 2.1 1.8-2.4 mg/dl Total Bilirubin 0.7 0.2-1 mg/dl Direct Bilirubin 0.2 0-0.2 mg/dl Aspartate Amino Transf (AST/SGOT) 20 15-37 U/L Alanine Aminotransferase (ALT/SGPT) 33 12-78 U/L Alkaline Phosphatase 68 45-117 U/L Troponin I < 0.015 < 0.015 0-0.045 ng/ml Total Protein 7.2 6.4-8.2 gm/dl Albumin 3.6 3.4-5.0 gm/dl Thyroid Stimulating Hormone (TSH) 2.290 0.300-4.500 uIu/ml Free Thyroxine 1.32 0.80-1.60 ng/dl Ethyl Alcohol mg/dL < 3.0 0-3 mg/dl Urine Color YELLOW Urine Appearance CLEAR CLEAR Urine pH 6.5 4.5-7.5 Urine Specific Snook 1.012 1.000-1.030 Urine Protein NEG NEG Urine Glucose (UA) NEG NEG Urine Ketones NEG NEG Urine Occult Blood TRACE NEG Urine Nitrite NEG NEG Urine Bilirubin NEG NEG Urine Urobilinogen NEG NEG Urine Leukocyte Esterase NEG NEG Urine WBC (Auto) 0 0-5 /hpf Urine RBC (Auto) 0-4 0-4 /hpf Urine Hyaline Casts (Auto) 0 0-5 /lpf Urine Epithelial Cells (Auto) 0-5 0-5 /lpf Urine Bacteria (Auto) NEG NEG Urine Opiates Screen NEG NEG Urine Methadone, Qualitative NEG NEG Urine Barbiturates NEG NEG Urine Phencyclidine (PCP) Level NEG NEG Ur Amphetamine/Methamphetamine NEG NEG MDMA (Ecstasy) Screen NEG NEG Urine Benzodiazepines Screen NEG NEG Urine Cocaine Metabolite NEG NEG Urine Marijuana (THC) NEG NEG Diagnostic Radiology C-spine w/o contrast 10/28/17 FINDINGS: There is reversal of the normal cervical lordosis. No acute cervical spine fracture is identified. The craniocervical junction is intact. There is mild multilevel disc space narrowing with extensive anterior osteophytosis of the cervical spine. There is no prevertebral edema. IMPRESSION: 1. No acute cervical spine fracture or subluxation. 2. Mild multilevel disc space narrowing and extensive anterior osteophytosis of the cervical spine. Head CT w/o Contrast 10/28/17 FINDINGS: No acute intracranial hemorrhage, midline shift or mass effect is present. Brain volume is normal. Ventricular system is normal. Basilar cisterns are patent. There are no extra-axial collections. Iqbal-white differentiation is maintained. There are no findings to suggest acute dural sinus thrombosis or acute territorial infarct. No calvarial fracture is present. IMPRESSION: No acute intracranial findings. EKG Tele showed normal sinus rhythm throughout the night with occasional PVCs. Normal EKG Impression Assessment and Plan Pt is a 57 yo with multiples episodes of light headedness following head trauma to the occiput following a fall on Friday evening 10/27/17. Immediately after the incident, pt felt like he was in a fog, complained of diplopia, head and neck pain, and nausea. He denied any chest pain, SOB, palpitations, LOC, or amnesia associated with the event. Pt noted 3 episodes of lightheadedness the following morning while walking. He denies LOC, seizure-like activity, palpitations or chest pain during these episodes. While pt was able to catch himself the first 2 times, he did fall to his knees and on his side the final episode. He was brought to ER by EMS with his last lightheaded episode. Since the incident, he notes improvement in his sx overall and no longer complains of "fogginess" or diplopia. Plan: Multiple bouts of lightheadedness, feeling in a fog, diplopia, LAMA consistent with concussive syndrome. Episodes of lightheadedness are unlikely syncopal in nature. DDx for lightheadedness: cardiac origin (essentially r/o with normal ECGs, normal tele monitoring, normal echo, no hx of any cardiac disorders), orthostatics, vertigo 2/2 concussion. 1) MRI to r/o contusion of the brain 2) Pt should rest, hydrate, and avoid strenuous work 3) Pt should not return to work until cleared by Neuro. Will be seen in clinic on 11/03 4) Pt can use OTC meds for pain Advanced Directives Existing Living Will: No Existing Power of Housekeeping Manager: No
--- NOTE | 2017-10-29 12:55 | DIAGNOSTIC IMAGING REPORT ---
MRI OF THE BRAIN WITHOUT AND WITH IV CONTRAST CLINICAL HISTORY: concussion HEAD TRAUMA. PERSISTENT HEADACHE. COMPARISON STUDY: Noncontrast head CT dated 10/28/2017 TECHNIQUE: MRI of the brain was performed from the vertex to the skull base utilizing various T1 and T2 weighted sequences. Following the IV administration of 12.2 mL of Gadavist contrast, additional enhanced images were obtained. FINDINGS: Sagittal T1, axial diffusion, proton density and T2 weighted axial, coronal FLAIR, and pre and post axial T1-weighted images were acquired. These were supplemented with post gadolinium coronal T1 weighted images. No intra or extra-axial mass lesions are visualized. Axial diffusion-weighted images reveal no evidence of acute or subacute infarction. There is no evidence of ventricular dilatation. Proton density T2-weighted and FLAIR images reveal no significant intraparenchymal signal abnormalities. There are no abnormal flow voids. There is no evidence of pathologic enhancement. IMPRESSION: Normal MRI of the brain for age. Electronically signed by: Brad Mckeon M.D. 10/29/2017 12:54 PM Dictated Date/Time: 10/29/2017 12:52 PM
--- NOTE | 2017-10-29 15:20 | Discharge Instructions ---
Discharge Instructions Date of Service Oct 29, 2017. Admission Reason for Admission: Syncope Discharge Discharge Diagnosis / Problem: Syncope, concussion Discharge Goals Goal(s): Decrease discomfort, Diagnostic testing, Therapeutic intervention Activity Recommendations Activity Limitations: as noted below Lifting Limitations: until after follow-up appointment (limit until cleared by neurology) Exercise/Sports Limitations: until after follow-up appointment (limit until cleared by neurology) Driving or Machine Use: no driving or machinery use until cleared by neurology . Instructions / Follow-Up Instructions / Follow-Up You were admitted to the hospital after presenting with a loss of consciousness and prior fall with head trauma. A head CT scan, MRI of the brain, and cervical spine CT were all negative for acute abnormalities. Your heart was monitored and did not show any abnormal rhythms. An echocardiogram, or ultrasound of the heart, was completed which did not show any wall motion abnormalities or significant heart valve disease. You were evaluated by neurology, and your symptoms are most likely due to a concussion that you sustained from your recent fall. You will have to be cleared by neurology before you can return to work or start driving. Medication: *No new medications have been added. Follow up: *You will be scheduled to follow up with the neurologist, Dr. Morgan, on Friday, November 03. *You will also be scheduled to follow up with your appointed primary care provider to clear your return to work. Please seek medical attention if you experience fevers, chills, sweats, dizziness/lightheadedness, vertigo, changes in vision, loss of consciousness, worsening headache, chest pain, shortness of breath, nausea, vomiting, numbness or tingling. Current Hospital Diet Patient's current hospital diet: Regular Diet Discharge Diet Recommended Diet: Regular Diet Pending Studies Studies pending at discharge: no Medical Emergencies . Who to Call and When: Medical Emergencies: If at any time you feel your situation is an emergency, please call 911 immediately. . Non-Emergent Contact Non-Emergency issues call your: Primary Care Provider, Neurologist Call Non-Emergent contact if: you have a fever, your pain is not controlled, your pain is worsening, your pain is unusual for you, your pain is concerning you, you have any medication questions . Past History Medical & Surgical History: (1) Concussion (2) Syncope . "Provider Documentation" section prepared by Kamryn Leblanc. . VTE Core Measure Inpt VTE Proph given/why not?: SCD's
--- NOTE | 2017-10-29 15:37 | Discharge Summary ---
Discharge Summary Date of Service Oct 29, 2017. Discharge Summary Admission Date: Oct 28, 2017 at 14:07 Discharge Date: Oct 29, 2017 Discharge Disposition: Home Principal Diagnosis: Syncope, concussion Problems/Secondary Diagnoses: Seasonal allergies, IBS Procedures: CT OF THE HEAD WITHOUT CONTRAST CLINICAL HISTORY: Syncope. Fall. COMPARISON STUDY: No previous studies for comparison. TECHNIQUE: Helical axial images of the head were obtained without IV contrast. Automated exposure control was utilized for the study. A dose lowering technique was utilized adhering to the principles of ALARA. FINDINGS: No acute intracranial hemorrhage, midline shift or mass effect is present. Brain volume is normal. Ventricular system is normal. Basilar cisterns are patent. There are no extra-axial collections. Iqbal-white differentiation is maintained. There are no findings to suggest acute dural sinus thrombosis or acute territorial infarct. No calvarial fracture is present. IMPRESSION: No acute intracranial findings. CT OF THE CERVICAL SPINE WITHOUT CONTRAST CLINICAL HISTORY: Fall. COMPARISON STUDY: No previous studies for comparison. TECHNIQUE: Helical axial images of the cervical spine were obtained without IV contrast. Sagittal and coronal reconstructions were viewed. A dose lowering technique was utilized adhering to the principles of ALARA. FINDINGS: There is reversal of the normal cervical lordosis. No acute cervical spine fracture is identified. The craniocervical junction is intact. There is mild multilevel disc space narrowing with extensive anterior osteophytosis of the cervical spine. There is no prevertebral edema. IMPRESSION: 1. No acute cervical spine fracture or subluxation. 2. Mild multilevel disc space narrowing and extensive anterior osteophytosis of the cervical spine. MRI OF THE BRAIN WITHOUT AND WITH IV CONTRAST CLINICAL HISTORY: concussion HEAD TRAUMA. PERSISTENT HEADACHE. COMPARISON STUDY: Noncontrast head CT dated 10/28/2017 TECHNIQUE: MRI of the brain was performed from the vertex to the skull base utilizing various T1 and T2 weighted sequences. Following the IV administration of 12.2 mL of Gadavist contrast, additional enhanced images were obtained. FINDINGS: Sagittal T1, axial diffusion, proton density and T2 weighted axial, coronal FLAIR, and pre and post axial T1-weighted images were acquired. These were supplemented with post gadolinium coronal T1 weighted images. No intra or extra-axial mass lesions are visualized. Axial diffusion-weighted images reveal no evidence of acute or subacute infarction. There is no evidence of ventricular dilatation. Proton density T2-weighted and FLAIR images reveal no significant intraparenchymal signal abnormalities. There are no abnormal flow voids. There is no evidence of pathologic enhancement. IMPRESSION: Normal MRI of the brain for age. Echocardiogram: Interpretation Summary * Name: JULIAN MORALES Study Date: 10/28/2017 02:37 PM BP: 114/62 mmHg * Patient [facility] HR: 72 * : 1960 (M/d/yyyy) Gender: Male Height: 72 in * Age: 57 yrs Ethnicity: [place] Weight: 279 lb * Ordering Physician: Daphney Johnson * Performed By: Amarilis Natarajan RDCS * * BSA: 2.5 m2 * Reason For Study: SYNCOPE * -- Conclusions -- * Left ventricular systolic function is low normal. * Grade I diastolic dysfunction, (abnormal relaxation pattern). * No significant valvular heart disease Procedure Details * A complete two-dimensional transthoracic echocardiogram was performed (2D, M-mode, Doppler and color flow Doppler). * The study was technically difficult. * The study was technically difficult, but visualization was adequate with the administration of Definity ultrasound contrast. * There were technical limitations due to patient'sbody habitus * A contrast injection of Definity was performed to improve assessment of LV function. * Contrast was injected into an intravenous site in the left arm. * One vial of Definity ultrasound contrast was diluted in normal saline to a total volume of 10 ml. A total of '2' ml of solution was administered during imaging. * Lot # [id number] of Definity utilized for procedure. * Expiration date . * The attending nurse who injected the contrast agent was AMNA Arango. Left Ventricle * The left ventricle is normal in size. * There is normal left ventricular wall thickness. * Ejection Fraction = 50-55%. * Left ventricular systolic function is low normal. * Grade I diastolic dysfunction, (abnormal relaxation pattern). * The left ventricular wall motion is normal. Right Ventricle * The right ventricle is normal in size and function. * The right ventricular systolic function is normal as assessed by tricuspid annular plane systolic excursion (TAPSE) (normal >1.5 cm). Atria * The left atrial size is normal. * Right atrial size is normal. Mitral Valve * The mitral valve is grossly normal. * Significant mitral regurgitation is absent. Tricuspid Valve * The tricuspid valve is not well visualized, but is grossly normal. * Significant tricuspid regurgitation is absent. Aortic Valve * The aortic valve is not well visualized. * Probably trileaflet * No hemodynamically significant valvular aortic stenosis. * There is no significant aortic regurgitation. Great Vessels * The aortic root is normal size. Pericardium/Pleural * There is no pericardial effusion. Consultations: Neurology Medication Reconciliation Medication Profile: No Active Prescriptions or Reported Meds Discharge Exam The patient reports feeling well. He denies any changes in vision, dizziness, lightheadedness, nausea. He states he has been able to walk without any falls, dizziness. He complains of a 1/10 pain in the back of his head. The patient denies fevers, chills, sweats, chest pain, palpitations, claudication, cough, wheezing, shortness of breath, nausea, vomiting, abdominal pain, dysuria, hematuria, urinary retention, paralysis, weakness, numbness and tingling. Constitutional: No fever, No chills, No sweats Eyes: No worsening of vision, No eye pain, No diplopia ENT: No hearing loss, No nasal symptoms, No trouble swallowing Respiratory: No cough, No wheezing, No shortness of breath Cardiovascular: No chest pain, No claudication, No palpitations Abdomen: No pain, No nausea, No vomiting Musculoskeletal: No joint pain, No muscle pain, No swelling Genitourinary - Male: No dysuria, No urinary retention, No hematuria Neurologic: No paralysis, No weakness, No numbness/tingling Integumentary: No rash, No itch, No color change General appearance: +Obese. Well-developed, well-nourished, no apparent distress Head: Normocephalic, atraumatic Eyes: Normal inspection, PERRL, EOMI ENT: Normal ENT inspection, hearing grossly normal, pharynx normal Neck: Supple, no JVD, trachea midline Respiratory/Chest: Lungs clear to auscultation, normal breath sounds, no respiratory distress Cardiovascular: Regular rate & rhythm, no gallop, no murmur Abdomen/GI: Normal bowel sounds, non-tender, soft Extremities/Musculoskeletal: Normal inspection, no calf tenderness, no pedal edema Neurological/Psych: Alert, normal mood/affect, oriented x 3 Skin: Normal color, warm/dry, no rash Hospital Course 57 y/o male with a history of seasonal allergies and IBS on no medications who presents to the ED on 10/28 with a syncopal episode. The patient had fallen on ice and hit his head one day prior to arrival. He had multiple near syncopal events prior to losing consciousness unwitnessed. Multiple near syncopal events, 1 syncopal event, fall--syncope and dizziness likely secondary to concussion after hitting head on ice. Improving -Admit to telemetry. No acute events overnight. Pt in sinus rhythm with PVCs, HR in 60s-70s. -Head CT, brain MRI negative -Cervical spine CT negative for acute disease -No cardiac history. EKGs no acute ischemic changes -Troponins negative -Echocardiogram shows LVEF of 50-55%, grade 1 diastolic dysfunction. No wall motion abnormalities. No significant valvular heart disease. -Consult neurology, appreciate recs: Obtain MRI of the brain to evaluate for cerebral contusion. No additional neurological testing at this time. Treat pain conservatively w/OTC meds. Follow up on 11/03, not cleared for work until f /u appointment. -Discussed with patient about no driving or work until cleared by neurology, taking it easy IBS-stable -Supportive care as needed Seasonal allergies-stable, no current issues -Takes Zyrtec and Flonase as needed usually in the spring time DVT prophylaxis -SCDs Code Status -Level I, FULL RESUSCITATION STATUS Total Time Spent: Greater than 30 minutes This includes examination of the patient, discharge planning, medication reconciliation, and communication with other providers. Discharge Instructions Please refer to the electronic Patient Visit Report (Discharge Instructions) for additional information. Additional Copies To Haleigh Frey PA-C
== END 2017-10-29 16:20 | disposition home or self-care (01) ==
LOC: EDBD 11:03 → C.EDC 11:04 → C.2T 14:07 → ENRESERV 14:35
PROVIDERS: ADMIT Family Medicine; ATTEND Hospitalist
DX: R55 Syncope and collapse (principal); S06.0X9A Concussion with loss of consciousness of unspecified duration, initial encounter; W00.0XXA Fall on same level due to ice and snow, initial encounter; F17.200 Nicotine dependence, unspecified, uncomplicated; Z83.3 Family history of diabetes mellitus; Z82.49 Family history of ischemic heart disease and other diseases of the circulatory system